=== PATIENT | male | born 1940 | race Caucasian/White ===

== ENCOUNTER 2017-02-18 10:37 | Observation (INO) | payer OTHER ==
[~2017-02-18] VITALS: Ht 182.9 cm; Wt 91.4 kg
[~2017-02-18 10:37] MED LIST: CHILD ASPIRIN81 M1 PO; DICLOFENAC SODI75 MG PO; DILAUDID2 MG PO; DULOXETINE HCL30 MG PO; FENTANYL1 EAC5 TD; HYDROCHLOROTH12.5 M3 PO; JANUVIA25 M1 PO; LISINOPRIL20 MG PO; LISINOPRIL40 MG PO; LYRICA150 MG PO; METFORMIN HCL1000 MG PO; PERCOCET 5/31 TABLET PO; RAMIPRIL10 MG PO; TRAMADOL HCL50 MG PO; TRAZODONE HCL50 MG PO
[2017-02-18 11:37] LABS: CHLORIDE 104 mEq/L (99-109); SODIUM 139 mEq/L (136-147)
[2017-02-18 11:39] LABS: GLUCOSE 245 mg/dL (70-99)
[2017-02-18 11:40] LABS: ANION GAP 10 MEQ/L (2-14)
[2017-02-18 11:43] LABS: GFR ESTIMATE (CALCULATED) 57 mL/min/
[2017-02-18 11:44] LABS: UREA NITROGEN (BUN) 23 mg/dL (9-23)
[2017-02-18 11:56] LABS: EOSINOPHIL (%) 0.2 % (0-5); HEMATOCRIT 40.8 % (38.0-50.0); IMMATURE GRANULOCYTE (%) 0.4 % (0.0-0.7); INSTRUMENT ABS NEUTROPHIL CT 4.6 K/uL; LYMPHOCYTE COUNT 0.9 K/uL (1.0-2.8); MCH 30.9 PG (29.0-34.0); MCV 85.7 FL (86-99); MEAN PLAT.VOLUME 11.9 uM^3 (9.0-12.4); MONOCYTE (%) 3.3 % (3-12); MONOCYTE COUNT 0.2 K/uL (0-0.8); NEUTROPHIL (%) 80.3 % (45-76); NEUTROPHIL COUNT 4.6 K/uL (1.8-6.4); PLATELET COUNT 112 K/uL (156-360); RBC DIS.WIDTH-CV 11.9 % (11.8-14.6); RBC DIS.WIDTH-SD 37.4 % (39-53); RED BLOOD COUNT 4.76 M/uL (4.00-5.50); WHITE BLOOD COUNT 5.7 K/uL (4.1-10.2)
[2017-02-18] MEDS ORDERED: LYRICA50 MG PO (14:14)
[2017-02-18] MEDS ORDERED: METOPROLOL TART50 MG PO (14:15)
[2017-02-18] MEDS ORDERED: JANUVIA25 M1 PO (14:16)
[2017-02-18] MEDS ORDERED: CHLORTHALIDONE25 MG PO (14:16)
[2017-02-18] MEDS ORDERED: METFORMIN HCL1000 M3 PO (15:19)
[2017-02-18 15:53] VITALS: BP 163/87
[2017-02-18 16:00] LABS: TROP-I INTERPRETATION NEGATIVE; TROPONIN-I < 0.01 ng/mL (0.0-0.30)
[2017-02-18 16:32] LABS: POINT-OF-CARE METER ID UU13113831
[2017-02-18] MEDS ORDERED: LYRICA75 MG PO (18:11)
[2017-02-18 19:30] VITALS: BP 129/72
[2017-02-18 21:50] LABS: TROP-I INTERPRETATION NEGATIVE; TROPONIN-I < 0.01 ng/mL (0.0-0.30)
[2017-02-18 22:17] LABS: POINT-OF-CARE METER ID UU14162513
[2017-02-19] VITALS (8 sets, daily range): BP systolic 100–154; BP diastolic 53–79
[2017-02-19 06:28] LABS: HEMATOCRIT 40.5 % (38.0-50.0); MCH 29.7 PG (29.0-34.0); MCHC 34.8 G/DL (30.0-36.0); MCV 85.4 FL (86-99); MEAN PLAT.VOLUME 12.1 uM^3 (9.0-12.4); PLATELET COUNT 131 K/uL (156-360); RBC DIS.WIDTH-CV 11.9 % (11.8-14.6); RBC DIS.WIDTH-SD 37.6 % (39-53); RED BLOOD COUNT 4.74 M/uL (4.00-5.50)
[2017-02-19 07:02] LABS: ANION GAP 10 MEQ/L (2-14); CHLORIDE 103 MEQ/L (99-109); GFR ESTIMATE (CALCULATED) 57 mL/min/; GLUCOSE 163 mg/dL (70-99); SAMPLE HEMOLYSIS CHECK 0; SAMPLE ICTERIC CHECK 0; SAMPLE LIPEMIA CHECK 0; SODIUM 140 MEQ/L (136-147); UREA NITROGEN (BUN) 19 mg/dL (9-23)
[2017-02-19 07:04] LABS: POTASSIUM 3.9 MEQ/L (3.7-5.4)
[2017-02-19 12:23] LABS: POINT-OF-CARE METER ID UU14162513
[2017-02-19 16:46] LABS: POINT-OF-CARE METER ID UU14162513
[2017-02-19 22:56] LABS: POINT-OF-CARE METER ID UU14162513
[2017-02-20 03:58] VITALS: BP 112/56
[2017-02-20 07:51] LABS: POINT-OF-CARE METER ID UU13113831
[2017-02-20 08:00] VITALS: BP 147/77
[2017-02-20 11:17] VITALS: BP 135/76
[2017-02-20 12:22] LABS: POINT-OF-CARE METER ID UU13113831
[2017-02-20 15:08] VITALS: BP 130/76
== END 2017-02-20 15:49 | disposition home or self-care (01) ==
LOC: EME 10:37 → EDOF 14:39 → 5WEST 14:39
PROVIDERS: Emergency Medicine; Internal Medicine; Physician Assistant; Student in an Organized Health Care Education/Training Program
DX: R42 Dizziness and giddiness (principal); I10 Essential (primary) hypertension; G61.81 Chronic inflammatory demyelinating polyneuritis; E11.65 Type 2 diabetes mellitus with hyperglycemia; H81.399 Other peripheral vertigo, unspecified ear; M48.06 Spinal stenosis, lumbar region; G89.4 Chronic pain syndrome; D69.6 Thrombocytopenia, unspecified; R11.2 Nausea with vomiting, unspecified; Z87.891 Personal history of nicotine dependence
CPT/HCPCS: 70450; 70553; 80048; 82948; 84484; 85025; 85027; 93005; 93306; 93880; 99281; 99284; G0378; G8978 GP CK; G8979 CJ; G8987 GO CJ; G8988 CI; J1815; J2405; J7030